=== PATIENT | male | born 1990 ===

== ENCOUNTER → 2020-01-29 | Outpatient (CLI) | payer OTHER | END | disposition home or self-care (01) | LOC: COVID19 14:50 | PROVIDERS: ATTEND Internal Medicine | DX: U07.1 COVID-19 (principal) ==

== ENCOUNTER → 2020-11-16 | Outpatient (CLI) | payer OTHER | END | disposition home or self-care (01) | LOC: RESCLI 15:00 | PROVIDERS: ATTEND Internal Medicine Nephrology | DX: H18.602 Keratoconus, unspecified, left eye (principal); I10 Essential (primary) hypertension; Z79.899 Other long term (current) drug therapy; Z84.89 Family history of other specified conditions ==